=== PATIENT | female | born 1955 | race African-American/Black ===

== ENCOUNTER 2024-04-20 10:15 | Emergency (ER) | payer MEDICARE ==
[~2024-04-20] VITALS: Ht 154.9 cm; Wt 60.0 kg
[2024-04-20 10:27] VITALS: BP 165/77; PULSE 51; TEMP 98; O2SAT 100
[2024-04-20] MEDS ORDERED: NAPR-1176 MT (11:08)
[2024-04-20] MEDS ORDERED: CYCL10TA21 MT (11:08)
[2024-04-20 11:15] VITALS: RESP 17
[2024-04-20] MEDS: KETOROLAC 30MG/ML VIAL IM ONE (11:15)
[2024-04-20] MEDS: CYCLOBENZAPRINE 10MG TABLET PO ONE (11:15)
== END 2024-04-20 12:00 | disposition home or self-care (01) ==
LOC: ER 10:15
DX: S16.1XXA Strain of muscle, fascia and tendon at neck level, initial encounter (principal); S39.012A Strain of muscle, fascia and tendon of lower back, initial encounter; I10 Essential (primary) hypertension; V49.9XXA Car occupant (driver) (passenger) injured in unspecified traffic accident, initial encounter; Y93.89 Activity, other specified; Y92.89 Other specified places as the place of occurrence of the external cause; Y99.8 Other external cause status
CPT/HCPCS: 99283; 71045; 96372; J1885